=== PATIENT | female | born 1990 | race Caucasian/White ===

== ENCOUNTER 2024-04-20 06:43 | Day surgery (SDC) | payer OTHER ==
[~2024-04-20] VITALS: Ht 170.2 cm; Wt 140.4 kg
[~2024-04-20 06:43] MED LIST: AMPH12.52 PO; CELE100 PO; ESCI20TA87 PO; HYDR-4769 PO; IBUP-1493 PO; LEVO25TA9 PO; METF-1211 PO; OMEP20 PO; RINGERS SOLUTION,LACTATED 1,000 ML IV ONE; SEMA2.4P SD; SPIR50TA27 PO; TOPI-258 PO
[2024-04-20] MEDS ORDERED: CLINDAMYCIN 600 MG/D5% WATER 50 ML IV ONE (07:30)
[2024-04-20 07:45] LABS: BASOPHILS % (AUTO) 0.7 % (0.0-2.0); EOSINOPHILS % (AUTO) 1.9 % (1.0-6.0); HEMATOCRIT 40.6 % (36-46); HEMOGLOBIN 12.7 g/dL (12.0-16.0); LYMPHOCYTES # (AUTO) 3.6 K/uL (1.0-4.8); LYMPHOCYTES % (AUTO) 30.2 % (22.0-44.0); MEAN CORPUSCULAR HEMOGLOBIN 25.2 pg (26.0-34.0); MEAN CORPUSCULAR HGB CONC 31.3 G/dL (31.0-37.0); MEAN CORPUSCULAR VOLUME 81 fL (80-100); MONOCYTES # (AUTO) 0.8 K/uL (0.1-1.0); MONOCYTES % (AUTO) 6.5 % (2.0-9.0); NEUTROPHILS # (AUTO) 7.2 K/uL (1.8-7.7); NEUTROPHILS % (AUTO) 60.7 % (40.0-70.0); PLATELET COUNT (AUTO) 383 K/uL (150-450); RED BLOOD CELL COUNT(AUTO) 5.03 MIL/uL (4.00-5.20); RED CELL DISTRIBUTION WIDTH 15.8 % (11.5-14.5); WHITE BLOOD COUNT (AUTO) 11.9 K/uL (4.5-11.0)
[2024-04-20 07:54] LABS: ANION GAP 12 mmol/L (8-16); CALCIUM, TOTAL 8.6 mg/dL (8.8-10.5); CARBON DIOXIDE 23 mmol/L (22-29); CHLORIDE 107 mmol/L (98-107); CREATININE 0.73 mg/dL (0.60-1.30); GLOMERULAR FILTR. RATE CALC > 60 mL/min (>60); GLUCOSE,RANDOM 97 mg/dL (70-110); POTASSIUM 3.7 mmol/L (3.5-5.1); SODIUM SERUM 142 mmol/L (136-145); UREA NITROGEN, BLOOD 17 mg/dL (7-18)
[2024-04-20 07:55] LABS: PROTHROMBIN TIME 10.1 SEC (9.4-11.6)
[2024-04-20 08:02] LABS: ALANINE AMINOTRANSFERASE 16 U/L (12-78); ALBUMIN 2.9 g/dL (3.4-5.0); ALKALINE PHOSPHATASE 66 U/L (46-116); ASPARTATE AMINOTRANSFERASE 12 U/L (15-37); BILIRUBIN,TOTAL 0.2 mg/dL (0.1-1.0); TOTAL PROTEIN, SERUM 7.1 g/dL (6.4-8.2)
[2024-04-20] MEDS: RINGERS SOLUTION,LACTATED 1,000 ML IV ONE (09:06)
[2024-04-20] MEDS ORDERED: HYDROmorphone HCL 2 MG/ML SYRINGE IVP PRN (09:15)
[2024-04-20] MEDS ORDERED: FentaNYL CITRATE PF 100 MCG/2 ML VIAL IVP PRN (09:15)
[2024-04-20] MEDS ORDERED: MEPERIDINE-PF 25 MG/ML VIAL IVP PRN (09:15)
[2024-04-20] MEDS: CLINDAMYCIN PHOSPHATE/D5W 600 MG/50 ML BAG IV ONE (10:20)
[2024-04-20] MEDS ORDERED: RINGERS SOLUTION,LACTATED 1,000 ML IV ONE (10:56)
[2024-04-20] MEDS ORDERED: LIDOCAINE/PF 2% 5 ML VIAL IM ONE (12:00)
[2024-04-20] MEDS ORDERED: SUGAMMADEX SODIUM 200 MG/2 ML VIAL IVP ONE (12:00)
[2024-04-20] MEDS ORDERED: DEXAMETHASONE SOD PHOS 4 MG/ML VIAL IVP ONE (12:00)
[2024-04-20] MEDS ORDERED: PROPOFOL 1% 20 ML VIAL IVP ONE (12:00)
[2024-04-20] MEDS ORDERED: ONDANSETRON HCL 4 MG/2 ML VIAL IVP ONE (12:00)
[2024-04-20] MEDS ORDERED: ROCURONIUM BROMIDE 10 MG/ML 5 ML VIAL IVP ONE (12:00)
[2024-04-20] MEDS ORDERED: OXYGEN THERAPY IH SCH (20:00)
== END 2024-04-20 12:20 | disposition home or self-care (01) ==
LOC: SURGERY 06:43
PROVIDERS: ATTEND Dentist General Practice
DX: K02.9 Dental caries, unspecified (principal); K05.6 Periodontal disease, unspecified; F79 Unspecified intellectual disabilities; E28.2 Polycystic ovarian syndrome; R05.9 Cough, unspecified; E03.9 Hypothyroidism, unspecified; E66.9 Obesity, unspecified; Z68.42 Body mass index [BMI] 45.0-49.9, adult; Z79.890 Hormone replacement therapy; Z79.899 Other long term (current) drug therapy; Z98.890 Other specified postprocedural states; Z88.0 Allergy status to penicillin
CPT/HCPCS: 80053; 84703; 85025; 85610; 85730; 36415; 93005; 71045; 41899; J2704; J3490 ×4; J1100; J2405; J7120; Z7610